=== PATIENT | female | born 1970 ===

== ENCOUNTER 2017-07-29 21:53 | Emergency (ER) | payer OTHER ==
[2017-07-29 22:05] VITALS: BMI 24.7
[2017-07-29 22:19] VITALS: BP 161/100; PULSE 84; RESP 20; TEMP 98.3; O2SAT 100
--- NOTE | 2017-07-29 22:46 | ED PDOC ---
HPI: Hypertension/Hypotension Chief Complaint (Provider): Anxiety about health History Per: Patient History/Exam Limitations: no limitations Onset/Duration Of Symptoms: Hrs Current Symptoms Are (Timing): Better Associated Symptoms: denies: Chest Pain, Dyspnea, Dizziness, Blurred Vision, Focal Weakness, Headache Quality Of Symptoms: Asymptomatic. denies: Rapid Heart Rate, Irregular Heart Rate, Extra Beats, No Rhythm Irregularity Severity: None Pain Scale Rating Of: 0 Exacerbating Factor(s): Pos: Other Neg: Recently Missed Doses Of Medication, Recent Change In Medication, Recent Use Of OTC Cold Medications, Recent Cocaine Use, Injestion Of Caffeinated Beverages, Increased Salt/Salty Foods Additional History Per: Patient Additional Complaint(s): 46 y/o F with HTN ( on HCTZ daily) presenting with elevated BP 161/100 after taking repeated BP measurements on home BP cuff. Patient states being anxious due to some life stressors (applied for new job). Denies CRENSHAW, blurry vision, chest pain, palpitations, focal weakness, parasthesias, dysarthria. No hx of VT, strokes, takes BP regularly at home which is normally around 140/ 90s. Patient has brought home BP cuff with her today. Compliant with HTN meds. (on HCTZ daily) PMD: Nikolay <Jose L Erazo F - Last Filed: 07/29/17 23:01> <Leticia Louis - Last Filed: 07/30/17 15:50> Time Seen by Provider: 07/29/17 22:22 Chief Complaint (Nursing): High Blood Pressure Supervising Attending Note - Supervising Attending Note The Documented history was done by the: Physician Director Sterile Processing, Attending Physician The documented physical exam was done by the: Physician Director Sterile Processing, Attending Physician - Attestation: I have personally seen and examined this patient.: Yes I have fully participated in the care of the patient.: Yes I have reviewed all pertinent clinical information, including history, physical exam and plan: Yes - Notes: Notes:: Resolved episode of elevated blood pressure, with no signs of end-organ disease. Stable for discharge with followup. <Leticia Louis - Last Filed: 07/30/17 15:50> Past Medical History Vital Signs: Last Vital Signs Temp 98.3 F 07/29/17 22:13 Pulse 84 07/29/17 22:13 Resp 20 07/29/17 22:13 BP 161/100 H 07/29/17 22:13 Pulse Ox 100 07/29/17 22:13 - Medical History PMH: Anemia, Anxiety, Arthritis, Gastritis - Surgical History Surgical History: - Family History Family History: States: Unknown Family Hx, Stroke (mother) <Jose L Erazo F - Last Filed: 07/29/17 23:01> Vital Signs: Last Vital Signs Temp 98.3 F 07/29/17 22:13 Pulse 84 07/29/17 22:13 Resp 20 07/29/17 22:13 BP 161/100 H 07/29/17 22:13 Pulse Ox 100 07/29/17 23:16 <Leticia Louis J - Last Filed: 07/30/17 15:50> - Home Medications Home Medications: Ambulatory Orders Medication Instructions Recorded Ibuprofen 600 mg PO Q6 #30 tab 05/21/16 Albuterol HFA [Ventolin HFA 90 2 puff IH [id number] #60 puff 06/02/16 mcg/actuation (8 g)] Azithromycin [Zithromax Z-Sam] 250 mg PO DAILY #5 tab 06/02/16 hydroCHLOROthiazide [Hydrodiuril] 25 mg PO DAILY #15 tab 09/24/16 - Allergies Allergies/Adverse Reactions: Allergies Allergy/AdvReac Type Severity Reaction Status Date / Time No Known Allergies Allergy Verified 09/24/16 01:13 Physical Exam - Reviewed Vital Signs Reviewed: Yes - Physical Exam Appears: Positive for: Well, No Acute Distress Head Exam: Positive for: ATRAUMATIC Skin: Positive for: Normal Color, Warm, Dry Eye Exam: Positive for: EOMI ENT: Positive for: Normal ENT Inspection Cardiovascular/Chest: Positive for: Regular Rate, Rhythm. Negative for: JVD, Murmur, Tachycardia Respiratory: Positive for: Normal Breath Sounds. Negative for: Crackles, Rales , Rhonchi, Stridor, Wheezing, Respiratory Distress Gastrointestinal/Abdominal: Positive for: Soft. Negative for: Tenderness, Distended, Guarding Back: Negative for: L CVA Tenderness, R CVA Tenderness Extremity: Negative for: Tenderness, Pedal Edema <Jose L Erazo F - Last Filed: 07/29/17 23:01> - ECG O2 Sat by Pulse Oximetry: 100 - Progress ED Course And Treament: Anxiety - counselled on Hypertensive crisis symptoms - EKG: NSR - repeat BPs 142/86, normotensive, no tachycardia, NSR - c/w medication as directed by Dr Link - stable to DC home Re-evaluation Time: 23:16 Condition: Re-examined, Improved <Jose L Erazo - Last Filed: 07/29/17 23:01> Disposition - Patient ED Disposition Is Patient to be Admitted: No - Disposition Disposition: Routine/Home Disposition Time: 22:46 <Jose L Erazo - Last Filed: 07/29/17 23:01> <Leticia Louis - Last Filed: 07/30/17 15:50> - Clinical Impression Clinical Impression: Anxiety - Disposition Referrals: Fernando Link MD [Family Provider] - Condition: GOOD Additional Instructions: return to ED if Sx of severe headache, blurry vision, vomiting, chest pain, sob continue ?HCTZ as directed by PMD Instructions: Hypertension (ED), Anxiety (ED) Forms: [employer] (Sammarinese) Print Language: UPPER SORBIAN
== END 2017-07-29 22:53 | disposition home or self-care (01) ==
LOC: H.ER 21:53
DX: F41.9 Anxiety disorder, unspecified (principal)

== ENCOUNTER 2018-07-15 15:50 | Emergency (ER) | payer OTHER ==
[2018-07-15 15:50] VITALS: BMI 24.7
[2018-07-15 16:00] VITALS: O2SAT 100
--- NOTE | 2018-07-15 17:28 | RAD ---
Date of service: 07/15/2018 PROCEDURE: Cervical Spine Radiographs. HISTORY: Pain. COMPARISON: None. FINDINGS: BONES: The vertebral bodies are maintained in height. Normal alignment is maintained. There is straightening of the normal lordotic curvature indicating possible muscular spasm. The atlantoaxial articulation is intact. Evaluation of the odontoid process is technically limited. DISC SPACES: There is narrowing of the C4-5 disc space consistent with mild degenerative disc disease. The remaining intervertebral disc spaces are maintained in height. SOFT TISSUES: Normal. No prevertebral soft tissue swelling. OTHER FINDINGS: None. IMPRESSION: No fracture/ dislocation. Possible muscle spasm. Degenerative disc disease at C4-5.
--- NOTE | 2018-07-15 17:28 | ED PDOC ---
Arrival/HPI - General Chief Complaint: Headache Time Seen by Provider: 07/15/18 16:06 Historian: Patient - History of Present Illness Narrative History of Present Illness (Text): 47 year old female presents to the emergency department complaining of right sided neck pain. Patient states that on Monday she had a gradual onset of progressively worsening right sided neck pain. She reports that as time progressed the pain radiated down her right shoulder and up into her head. Neck pain is described as stiffness and pain is worsened when turning head to the right. Denies nausea, fever, trauma, sore throat, vomiting, chest pain, shortness of breath. Of note: Took Motrin without relief and did not take flexeril contrary to triage note. Past Medical History - Provider Review Nursing Documentation Reviewed: Yes - Travel History Have you recently traveled outside [place] w/in the past 3 mons?: Yes - Past History Past History: No Previous - Infectious Disease Hx of Infectious Diseases: None - Tetanus Immunization Tetanus Immunization: Unknown - Cardiac Hx Hypertension: Yes - Hematological/Oncological Hx Anemia: Yes - Musculoskeletal/Rheumatological Hx Arthritis: Yes - Gastrointestinal Hx Gastritis: Yes - Psychiatric Hx Anxiety: Yes Hx Substance Use: No - Surgical History Hx Breast Biopsy: Yes (right breast cyst removal) Hx Section: Yes (X1) - Anesthesia Hx Anesthesia: Yes Hx Anesthesia Reactions: No Hx Malignant Hyperthermia: No Family/Social History - Physician Review Nursing Documentation Reviewed: Yes Family/Social History: No Known Family HX Smoking Status: Never Smoked Hx Alcohol Use: No Hx Substance Use: No Allergies/Home Meds Allergies/Adverse Reactions: Allergies No Known Allergies Allergy (Verified 09/24/16 01:13) Review of Systems - Physician Review All systems were reviewed & negative as marked: Yes - Review of Systems Musculoskeletal: Neck Pain (right sided) Physical Exam Vital Signs Reviewed: Yes Vital Signs Temp Pulse Resp BP Pulse Ox 07/15/18 15:55 99.7 F H 95 H 16 139/86 100 Temperature: Afebrile Blood Pressure: Normal Pulse: Regular Respiratory Rate: Normal Appearance: Positive for: Well-Appearing, Non-Toxic Pain Distress: Mild Mental Status: Positive for: Alert and Oriented X 3 - Systems Exam Head: Present: Atraumatic Pupils: Present: PERRL Extroacular Muscles: Present: EOMI Conjunctiva: Present: Normal Neck: Present: Normal Range of Motion (pain with movement of the neck ), Other ( right sided Para cervical muscle spasm and tenderness ). No: MIDLINE TENDERNESS Respiratory/Chest: Present: Clear to Auscultation, Good Air Exchange. No: Respiratory Distress, Wheezes Cardiovascular: Present: Regular Rate and Rhythm. No: Tachycardic Abdomen: Present: Normal Bowel Sounds. No: Tenderness, Distention Back: Present: Normal Inspection. No: CVA Tenderness Neurological: Present: Other (equal fitness instructor strength bilaterally) Skin: Present: Warm, Dry, Normal Color. No: Rashes Psychiatric: Present: Alert, Oriented x 3 Medical Decision Making ED Course and Treatment: 1606 Initial Impression 47 year old female presenting with right sided neck pain Initial Plan: * CT cervical Spine w/o * Contrast * Flexeril 10 mg PO * Toradol 30 mg IM * C-spine x-ray * Reevaluation C-spine x-ray: bony abnormality at C3. Cervical spine CT w/o contrast ordered. Pt. reports pain has improved. 1821 CT cervical spine w/o contrast: 1. Central disc herniation C3-C4 and C4-C5. Likely spinal canal stenosis and possible cord impingement/compression from disc herniations at C4-C5. Consider MRI evaluation. 2. No compression deformities of the vertebral bodies. Pt. informed of results and advised to f/u with pain management or PMD for MRI. Documented by Melinda Mckeon acting as a scribe for Tima Neri PA-C. All medical record entries made by the Scribe were at my direction and personally dictated by me. I have reviewed the chart and agree that the record accurately reflects my personal performance of the history, physical exam, medical decision making, and the department course for this patient. I have also personally directed, reviewed, and agree with the discharge instructions and disposition. - RAD Interpretation Radiology Orders: 07/15/18 16:14 CERVICAL SPINE AP & LATERAL [RAD] Stat 07/15/18 17:12 CERVICAL SPINE W/O CONTRAST [CT] Stat - Medication Orders Current Medication Orders: Discontinued Medications Cyclobenzaprine HCl (Flexeril) 10 mg PO ONCE ONE Stop: 07/15/18 16:15 Last Admin: 07/15/18 16:27 Dose: 10 mg Ketorolac Tromethamine (Toradol) 30 mg IM ONCE ONE Stop: 07/15/18 16:15 Last Admin: 07/15/18 16:27 Dose: 30 mg MAR Pain Assessment Document 07/15/18 16:27 [facility] (Rec: 07/15/18 16:27 [facility] [id number]) Pain Reassessment Is this a pain reassessment? No Sleep Is patient sleeping during reassessment? No Presence of Pain Presence of Pain Yes Pain Scale Used Pain Scale Used Numeric Location Upper or Lower Upper Pain Location Body Site Neck Description Description Constant Intensity of Pain at present 7 Pain Behavior Irritability Withdrawal from Touch Aggravating Factors ADL's Changing Position Alleviating Factors/Management Medication Techniques Alleviating Factors Medication IM Administration Charges Document 07/15/18 16:27 [facility] (Rec: 07/15/18 16:27 [facility] [id number]) Injection Site MAR Injection Site Left Arm Charges for Administration # of IM Administrations 1 Disposition/Present on Arrival - Present on Arrival Any Indicators Present on Arrival: No - Disposition Have Diagnosis and Disposition been Completed?: Yes Diagnosis: Cervical radiculopathy Disposition: HOME/ ROUTINE Disposition Time: 18:27 Patient Plan: Discharge Patient Problems: Current Active Problems Problem Status Onset Cervical radiculopathy Acute Condition: IMPROVED Discharge Instructions (ExitCare): Radiculopathy (DC) Print Language: MICRONESIAN Additional Instructions: GENARO RUIZ, thank you for letting us take care of you today. Your provider was Silva Gonsalez MD and you were treated for NECK PAIN,HEAD PAIN. The emergency medical care you received today was directed at your acute symptoms. If you were prescribed any medication, please fill it and take as directed. It may take several days for your symptoms to resolve. Return to the Emergency Department if your symptoms worsen, do not improve, or if you have any other problems. Please contact your doctor or call one of the physicians/clinics you have been referred to that are listed on the Patient Visit Information form that is included in your discharge packet. Bring any paperwork you were given at discharge with you along with any medications you are taking to your follow up visit. Our treatment cannot replace ongoing medical care by a primary care provider outside of the emergency department. [facility] of your care today. If you had an X-Ray or CT scan: A Radiologist will review the ED reading if any change in treatment is needed we will contact you. If you had a blood, urine, or wound culture: It will take several days for the results, if any change in treatment is needed we will contact you. If you had an STI test: It will take 48 hours for the results. Please call after 1 week if you have not heard back. Prescriptions: Cyclobenzaprine [Cyclobenzaprine HCl] 10 mg PO Q8 PRN #14 tab PRN Reason: Muscle Spasm Naproxen [Naprosyn] 500 mg PO BID PRN #10 tab PRN Reason: Pain Referrals: [facility] [Outside] [facility] [Outside] Forms: [employer] (Kyrgyz)
[2018-07-15 18:43] VITALS: BP 132/77; PULSE 89; RESP 18; TEMP 99.3
--- NOTE | 2018-07-16 09:47 | CT ---
Date of service: 07/15/2018 PROCEDURE: CT Cervical Spine without contrast HISTORY: atraumatic neck pain radiating to head and shoulde COMPARISON: Cervical spine CT without contrast 05/21/2016 as well as cervical spine radiographs 07/15/2018. TECHNIQUE: Axial computed tomography images were obtained of the cervical spine without the use of intravenous contrast. Coronal and sagittal reformatted images were created and reviewed. Radiation dose: Total exam DLP = 306.13 mGy-cm. This CT exam was performed using one or more of the following dose reduction techniques: Automated exposure control, adjustment of the mA and/or kV according to patient size, and/or use of iterative reconstruction technique. FINDINGS: VERTEBRAE: The prior straightening appears to nearly completely resolved with near normal curvature appreciated at this time. No fracture or spondylolisthesis is identified on acute basis. No focal destructive bony lesion is appreciated throughout the exam. Multilevel spondylosis is reiterated primarily at the mid inferior cervical levels as well as multilevel facet joint degenerative arthropathy. C1-2 degenerative changes are again appreciated at the odontoid articulation and there is ossification of the ligament posterior to the dens. Upper prevertebral soft tissues appear slightly increased in thickness in the interval, which may be a function of degenerative soft tissue edema related to the C1-2 articulation or possible infectious or inflammatory change unrelated. Prevertebral and paraspinal soft tissues otherwise appear unremarkable. DISCS/SPINAL CANAL/NEURAL FORAMINA: C2-3 level remains unremarkable. At C3-4, there is a left paracentral disc osteophyte complex abutting the ventral cord likely and encroaching if not impinging ventral nerve roots once again. This results in a borderline central canal stenosis. No neural foraminal stenosis bilaterally. At C4-5, posterior osteophyte ridging is increased at the right side in particular including uncovertebral osteophytes. A mild but increased central disc herniation identified causing a mild to moderate central canal stenosis. The ventral cervical cord appears indented and the cord may be impinged. There is a moderate right degenerative neural foraminal stenosis present. No left neural foraminal stenosis. At C5-6, a stable central disc protrusion is appreciated without significant stenosis resulting. Bilateral neural foramina appear widely patent. At C6-7 and C7-T1. No definitive disc herniation is identified or bony stenosis. OTHER FINDINGS: A small lucency is seen at the left lobe thyroid gland once again previously measuring mm 5.6, now measuring 6.5 mm. IMPRESSION: 1. A small but increased disc herniation at C4-5 likely indents the ventral cord which may be impinged. Increased right neuroforaminal stenosis now appears moderate, on a degenerative basis. 2. At C3-4, a left paracentral disc osteophyte complex abuts the ventral cord and encroaches if not impinges ventral nerve roots once again, not significantly changed in the interval. 3. Stable small central disc protrusion C5-6 without significant stenosis resulting. 4. Consider follow-up MRI for additional characterization. 5. Incidental small lucency left thyroid lobe minimally increased in size in the interval (5.6 mm to 6.5 mm). Better characterization can be provided by thyroid ultrasonography. Thyroid findings discordant from V rad preliminary report 07/15/2018. PA review submitted.
== END 2018-07-15 18:45 | disposition home or self-care (01) ==
LOC: H.ER 15:50
DX: M54.12 Radiculopathy, cervical region (principal); I10 Essential (primary) hypertension; M50.122 Cervical disc disorder at C5-C6 level with radiculopathy
CPT/HCPCS: 72040; 72125; 81025; 96372; 99285; J1885